=== PATIENT | male | born 1955 | race African-American/Black ===

== ENCOUNTER 2022-12-06 18:59 | Emergency (ER) | payer OTHER, MEDICAID ==
[~2022-12-06] VITALS: Ht 180.3 cm; Wt 77.0 kg
[2022-12-06 19:02] VITALS: BP 147/90; O2SAT 99
[2022-12-06] MEDS ORDERED: BACITRACIN ZINC OINT UDPKT TOP ONE (19:45)
[2022-12-06] MEDS ORDERED: ACETAMINOPHEN 500MG TABLET PO ONE (19:45)
[2022-12-06] MEDS ORDERED: BO1 TP (21:10)
[2022-12-06 21:56] VITALS: PULSE 99; RESP 14; TEMP 98.3
== END 2022-12-06 22:00 | disposition home or self-care (01) ==
LOC: ER 18:59
DX: S09.90XA Unspecified injury of head, initial encounter (principal); S80.11XA Contusion of right lower leg, initial encounter; E78.00 Pure hypercholesterolemia, unspecified; V03.19XA Pedestrian with other conveyance injured in collision with car, pick-up truck or van in traffic accident, initial encounter; Y93.89 Activity, other specified; Y92.89 Other specified places as the place of occurrence of the external cause; Y99.8 Other external cause status
CPT/HCPCS: 70486; 73562; 73590; 99284